=== PATIENT | male | born 2000 | race Caucasian/White ===

== ENCOUNTER → 2019-11-23 | Outpatient (CLI) | payer OTHER | LOC: LAB 13:08 | PROVIDERS: ATTEND Emergency Medicine | DX: R11.0 Nausea (principal); R51 Headache; Z20.828 Contact with and (suspected) exposure to other viral communicable diseases ==

== ENCOUNTER 2020-02-25 02:30 | Emergency (ER) | payer OTHER ==
[~2020-02-25] VITALS: Ht 172.7 cm; Wt 77.1 kg
[2020-02-25 03:16] LABS: ABSOLUTE NEUTROPHILS 4.4 thou/uL (1.4-8.2); BASOPHILS 0.8 % (0.0-2.0); EOSINOPHILS 2.7 % (0.0-3.0); HEMATOCRIT 49.1 % (42.0-52.0); HEMOGLOBIN 16.5 gm/dL (14.0-18.0); LYMPHOCYTES 37.2 % (24.0-44.0); MCH 29.5 pg (26.0-34.0); MCHC 33.7 g/dL (28.0-37.0); MCV 87.6 fL (80.0-100.0); MONOCYTES 8.8 % (1.0-8.0); PLATELET COUNT 264 thou/uL (150-400); POLYS 50.5 % (36.0-66.0); RDW 13.6 % (10.5-14.5); WBC 8.8 thou/uL (4.0-11.0)
[2020-02-25 03:18] LABS: CALCIUM 9.2 mg/dL (8.5-10.1); POTASSIUM 3.6 mmol/L (3.5-5.1)
[2020-02-25] MEDS ORDERED: PREDNISONE 20 M20 MG PO (05:37)
[2020-02-25] MEDS ORDERED: EPIPEN0.3 MG/0.1 IM (05:38)
[2020-02-25 05:41] VITALS: BP 108/71
== END 2020-02-25 05:46 | disposition home or self-care (01) ==
LOC: ER 02:30
PROVIDERS: Emergency Medicine
DX: T78.40XA Allergy, unspecified, initial encounter (principal); Y92.89 Other specified places as the place of occurrence of the external cause

== ENCOUNTER → 2020-03-20 | Outpatient (CLI) | payer OTHER ==
[~2020-03-20] MED LIST: EPIPEN0.3 MG/0.1 IM; PREDNISONE 20 M20 MG PO
== END ==
LOC: LAB 09:07
PROVIDERS: ATTEND Emergency Medicine
DX: U07.1 COVID-19 (principal)

== ENCOUNTER 2020-10-22 01:51 | Emergency (ER) | payer OTHER ==
[~2020-10-22] VITALS: Ht 172.7 cm; Wt 79.4 kg
[2020-10-22 02:22] LABS: URINE BILIRUBIN NEGATIVE (Negative); URINE BLOOD NEGATIVE (Negative); URINE CLARITY CLEAR; URINE COLOR YELLOW; URINE GLUCOSE-RANDOM* NEGATIVE (Negative); URINE KETONES NEGATIVE (Negative); URINE LEUKOCYTES-REFLEX NEGATIVE (Negative); URINE NITRITE-REFLEX NEGATIVE (Negative); URINE PROTEIN (DIPSTICK) NEGATIVE (Negative); URINE SPECIFIC GRAVITY 1.015 (1.005-1.035); URINE UROBILINOGEN 0.2 E.U./dl (0.2-1.0)
[2020-10-22 02:22] LABS: ABSOLUTE NEUTROPHILS 4.8 thou/uL (1.4-8.2); BASOPHILS 0.7 % (0.0-2.0); EOSINOPHILS 0.8 % (0.0-3.0); HEMATOCRIT 48.9 % (42.0-52.0); HEMOGLOBIN 16.8 gm/dL (14.0-18.0); LYMPHOCYTES 31.6 % (24.0-44.0); MCH 29.6 pg (26.0-34.0); MCHC 34.3 g/dL (28.0-37.0); MCV 86.4 fL (80.0-100.0); MONOCYTES 9.6 % (1.0-8.0); PLATELET COUNT 235 thou/uL (150-400); POLYS 57.3 % (36.0-66.0); RBC 5.66 mil/uL (4.50-6.00); RDW 13.5 % (10.5-14.5); WBC 8.4 thou/uL (4.0-11.0)
[2020-10-22 02:24] LABS: CREATININE 1.2 mg/dL (0.7-1.3); POTASSIUM 3.5 mmol/L (3.5-5.1)
[2020-10-22 02:30] LABS: ALBUMIN 4.7 g/dL (3.4-5.0); DIRECT BILIRUBIN 0.1 mg/dL (<0.1-0.2); TOTAL BILIRUBIN 0.6 mg/dL (0.2-1.0); TOTAL PROTEIN 8.4 g/dL (6.4-8.2)
[2020-10-22] MEDS ORDERED: TYLENOL325 M1 PO (05:13)
[2020-10-22] MEDS ORDERED: LOMOTIL TABLET1 EACH PO (05:13)
[2020-10-22] MEDS ORDERED: BENTYL 10 MG CA10 M1 PO (05:13)
[2020-10-22 05:42] VITALS: BP 124/70
--- NOTE | 2020-10-22 07:09 | EKG ---
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
== END 2020-10-22 05:28 | disposition home or self-care (01) ==
LOC: ER 01:51
PROVIDERS: Emergency Medicine
DX: R10.31 Right lower quadrant pain (principal); Z20.822 Contact with and (suspected) exposure to COVID-19; R19.7 Diarrhea, unspecified; R63.0 Anorexia; R11.0 Nausea; Z98.890 Other specified postprocedural states